=== PATIENT | male | born 1955 | race African-American/Black ===

== ENCOUNTER 2019-02-16 10:06 | Emergency (ER) | payer MEDICAID ==
[~2019-02-16] VITALS: Ht 170.2 cm; Wt 77.0 kg
[~2019-02-16 10:06] MED LIST: ALBUTEROL
[2019-02-16] MEDS ORDERED: ALBUTEROL (0.083%) 2.5MG/3ML NEB HHN STA (11:51)
[2019-02-16] MEDS ORDERED: IPRATROPIUM BROMIDE (0.02%) 0.5MG/2.5ML NEB HHN STA (11:51)
[2019-02-16] MEDS ORDERED: MAGNESIUM 2 G PREMIX 50 ML IV STA (11:51)
[2019-02-16] MEDS ORDERED: METHYLPREDNISOLONE SOD SUCC 125 MG/2 ML VIAL IV STA (11:51)
[2019-02-16 13:12] LABS: CHLORIDE 107 mEq/L (98-107)
[2019-02-16 13:21] LABS: BASOPHILS % 0.8 % (0.0-2.0); EOSINOPHILS % 0.4 % (0.0-5.0); HEMATOCRIT. 21.1 % (42.0-52.0); LYMPHOCYTES % 10.1 % (20.0-50.0); MEAN CORPUSCULAR HEMOGLOBIN 19.2 pg (28.0-32.0); MEAN CORPUSCULAR VOLUME 65.5 fL (80.0-94.0); MEAN PLATELET VOLUME 7.3 fl (7.4-10.4); MONOCYTES % 5.9 % (2.0-8.0); NEUTROPHILS % 82.8 % (40.0-76.0); PLATELET 429 x1000/uL (130-400); RED BLOOD CELL COUNT 3.22 mill/uL (4.7-6.1); RED CELL DISTRIBUTION WIDTH 15.7 % (11.6-14.6)
[2019-02-16 13:24] LABS: HEMOGLOBIN. 6.2 g/dL (14.0-18.0)
[2019-02-16 14:12] LABS: PLATELET ESTIMATE NORMAL
[2019-02-16 14:25] VITALS: BP 152/65
== END 2019-02-16 15:01 | disposition left against medical advice (07) ==
LOC: ER 10:17
DX: D64.9 Anemia, unspecified (principal); J45.909 Unspecified asthma, uncomplicated
CPT/HCPCS: 36415; 71045; 80053; 83880; 84484; 85025; 93005; 94644; 96365; 96375; 99285; J2930; J3475; J7611; Z7610

== ENCOUNTER 2019-02-18 10:03 | Inpatient (IN) | payer MEDICAID ==
[~2019-02-18] VITALS: Ht 172.7 cm; Wt 72.1 kg
[2019-02-18 11:29] LABS: MEAN CORPUSCULAR HEMOGLOBIN 19.6 pg (28.0-32.0); MEAN CORPUSCULAR VOLUME 66.4 fL (80.0-94.0); MEAN PLATELET VOLUME 7.3 fl (7.4-10.4); PLATELET 477 x1000/uL (130-400); RED BLOOD CELL COUNT 3.28 mill/uL (4.7-6.1)
[2019-02-18 11:35] LABS: CHLORIDE 102 mEq/L (98-107); PROTHROMBIN TIME 10.3 sec (9.6-11.0)
[2019-02-18 11:40] LABS: HEMATOCRIT. 21.8 % (42.0-52.0); HEMOGLOBIN. 6.4 g/dL (14.0-18.0)
[2019-02-18 12:58] LABS: PLATELET ESTIMATE INCREASED
[2019-02-18] MEDS ORDERED: IPRATROPIUM/ALBUTEROL 0.5-3(2.5)MG/3ML NEB HHN PRN ×2 (13:00→13:30)
[2019-02-18] MEDS ORDERED: CEFTRIAXONE 1 G PREMIX 50 ML IV SCH (13:00)
[2019-02-18] MEDS: SODIUM CHLORIDE 0.9% 1,000 ML IV SCH (13:00)
[2019-02-18 14:29] LABS: CLARITY URINE CLEAR (CLEAR); COLOR URINE YELLOW (YELLOW); KETONES URINE NEGATIVE (NEGATIVE); LEUKOCYTE ESTERASE URINE NEGATIVE (NEGATIVE); NITRITE URINE NEGATIVE (NEGATIVE); OCCULT BLOOD URINE NEGATIVE (NEGATIVE); PH URINE 5.5 (4.5-8.0); PROTEIN URINE NEGATIVE (NEGATIVE); SPECIFIC GRAVITY URINE 1.018 (1.005-1.030)
[2019-02-18 17:27] VITALS: BP 136/86
[2019-02-18 20:00] VITALS: BP 135/75
[2019-02-18] MEDS ORDERED: VANCOMYCIN 2,000 MG in DEXT 5% WATER 500 ML IV NR (20:00)
[2019-02-18 21:00] VITALS: BP 135/75
[2019-02-18] MEDS ORDERED: GUAIFENESIN 600MG ER TABLET PO SCH (21:00)
[2019-02-18 21:06] LABS: HEMOGLOBIN 6.6 g/dL (14.0-18.0)
[2019-02-18 21:07] LABS: HEMATOCRIT 21.5 % (42.0-52.0)
[2019-02-18] MEDS: IPRATROPIUM/ALBUTEROL 0.5-3(2.5)MG/3ML NEB HHN SCH (21:09)
[2019-02-18 21:17] LABS: PROTHROMBIN TIME 10.4 sec (9.6-11.0)
[2019-02-18] MEDS: CEFTRIAXONE 1 G PREMIX 50 ML IV SCH (21:56)
[2019-02-18 23:30] VITALS: BP 126/70
[2019-02-18 23:47] VITALS: BP 136/69
[2019-02-19] VITALS (12 sets, daily range): BP systolic 123–159; BP diastolic 61–87
[2019-02-19] MEDS: GUAIFENESIN 600MG ER TABLET PO SCH ×2 (00:10→09:14)
[2019-02-19] MEDS: IPRATROPIUM/ALBUTEROL 0.5-3(2.5)MG/3ML NEB HHN SCH ×5 (00:18→16:42)
[2019-02-19] MEDS: SODIUM CHLORIDE 0.9% 1,000 ML IV SCH (03:19)
[2019-02-19] MEDS ORDERED: VANCOMYCIN 1250MG in DEXTROSE 5% WATER 250ML IV SCH (08:00)
[2019-02-19 10:27] LABS: HEMATOCRIT. 27.8 % (42.0-52.0); HEMOGLOBIN. 8.7 g/dL (14.0-18.0); MEAN CORPUSCULAR HEMOGLOBIN 22.3 pg (28.0-32.0); MEAN CORPUSCULAR VOLUME 70.9 fL (80.0-94.0); MEAN PLATELET VOLUME 7.2 fl (7.4-10.4); PLATELET 408 x1000/uL (130-400); RED BLOOD CELL COUNT 3.93 mill/uL (4.7-6.1); RED CELL DISTRIBUTION WIDTH 20.9 % (11.6-14.6)
[2019-02-19 10:31] LABS: CHLORIDE 103 mEq/L (98-107)
[2019-02-19 13:15] LABS: TOTAL IRON BINDING CAPACITY 306 ug/dL (250-450)
[2019-02-19 16:11] LABS: PLATELET ESTIMATE INCREASED
[2019-02-19 17:27] LABS: *AMPHETAMINES SCREEN URINE NEGATIVE (NEGATIVE); *BARBITURATES SCREEN URINE NEGATIVE (NEGATIVE); *BENZODIAZEPINES SCREEN URINE NEGATIVE (NEGATIVE); *COCAINE SCREEN URINE NEGATIVE (NEGATIVE)
[2019-02-19 17:28] LABS: CANNABINOID URINE SCREEN NEGATIVE (NEGATIVE); METHADONE URINE SCREEN NEGATIVE (NEGATIVE); OPIATES URINE SCREEN PRESUMTIVE POSITIVE (NEGATIVE); PHENCYCLIDINE URINE SCREEN NEGATIVE (NEGATIVE)
[2019-02-19] MEDS: CEFTRIAXONE 1 G PREMIX 50 ML IV SCH (18:30)
== END 2019-02-19 18:30 | disposition home or self-care (01) | DRG 720 ==
LOC: ER 10:03 → 5WST 12:40 → ENRESERV 15:44
PROVIDERS: ADMIT Internal Medicine; ATTEND Internal Medicine
PROC: 30233N1 Transfusion of Nonautologous Red Blood Cells into Peripheral Vein, Percutaneous Approach (ICD-10-PCS; principal; 2019-02-18)
DX: A41.9 Sepsis, unspecified organism (principal); E44.1 Mild protein-calorie malnutrition; E87.1 Hypo-osmolality and hyponatremia; F17.210 Nicotine dependence, cigarettes, uncomplicated; L03.115 Cellulitis of right lower limb; D50.9 Iron deficiency anemia, unspecified; J45.909 Unspecified asthma, uncomplicated; Z71.6 Tobacco abuse counseling; Z68.24 Body mass index [BMI] 24.0-24.9, adult
CPT/HCPCS: 36415; 71045; 80048; 80305; 81003; 82728; 83036; 83540; 83550; 84145; 85014; 85018; 85049; 85384; 86850; 86900; 86920; 93970; 94640; 99285; J0696; J3370; J7060; J7620; P9016; P9021

== ENCOUNTER 2019-09-03 12:56 | Inpatient (IN) | payer MEDICAID ==
[~2019-09-03] VITALS: Ht 170.2 cm; Wt 67.6 kg
[2019-09-03 15:05] LABS: CHLORIDE 106 mEq/L (98-107)
[2019-09-03 15:08] LABS: INR 0.9; PROTHROMBIN TIME 10.1 sec (9.6-11.0)
[2019-09-03 15:09] LABS: MEAN CORPUSCULAR HEMOGLOBIN 17.3 pg (28.0-32.0); MEAN CORPUSCULAR VOLUME 62.1 fL (80.0-94.0); MEAN PLATELET VOLUME 7.2 fl (7.4-10.4); PLATELET 530 x1000/uL (130-400); RED BLOOD CELL COUNT 2.92 mill/uL (4.7-6.1); RED CELL DISTRIBUTION WIDTH 17.3 % (11.6-14.6)
[2019-09-03 15:21] LABS: HEMATOCRIT. 18.2 % (42.0-52.0); HEMOGLOBIN. 5.1 g/dL (14.0-18.0)
[2019-09-03 16:22] LABS: PLATELET ESTIMATE INCREASED
[2019-09-03] MEDS ORDERED: IPRATROPIUM/ALBUTEROL 0.5-3(2.5)MG/3ML NEB HHN PRN (17:30)
[2019-09-03] MEDS ORDERED: BENZONATATE 100MG CAPSULE PO PRN (17:30)
[2019-09-03] MEDS ORDERED: ACETAMINOPHEN 325MG TABLET PO PRN (17:30)
[2019-09-03] MEDS ORDERED: ONDANSETRON HCL 4MG/2ML INJ IV PRN (17:30)
[2019-09-03 17:44] VITALS: BP 128/70
[2019-09-03 17:45] VITALS: BP 128/70
[2019-09-03] MEDS: AZITHROMYCIN 500 MG TABLET PO SCH (19:31)
[2019-09-03] MEDS: SODIUM CHLORIDE 0.9% 1,000 ML IV SCH ×2 (19:34→23:17)
[2019-09-03 20:24] VITALS: BP 121/70
[2019-09-03 20:42] VITALS: BP 122/78
[2019-09-03 21:42] VITALS: BP 110/56
[2019-09-03 21:44] LABS: CLARITY URINE CLEAR (CLEAR); COLOR URINE YELLOW (YELLOW); KETONES URINE NEGATIVE (NEGATIVE); LEUKOCYTE ESTERASE URINE NEGATIVE (NEGATIVE); NITRITE URINE NEGATIVE (NEGATIVE); OCCULT BLOOD URINE NEGATIVE (NEGATIVE); PROTEIN URINE NEGATIVE (NEGATIVE); SPECIFIC GRAVITY URINE 1.014 (1.005-1.030); UROBILINOGEN URINE 0.2 E.U./dL (0.2-1.0)
[2019-09-03 21:53] LABS: *AMPHETAMINES SCREEN URINE PRESUMTIVE POSITIVE (NEGATIVE); *BARBITURATES SCREEN URINE NEGATIVE (NEGATIVE); *BENZODIAZEPINES SCREEN URINE NEGATIVE (NEGATIVE); *COCAINE SCREEN URINE NEGATIVE (NEGATIVE)
[2019-09-03 21:54] LABS: CANNABINOID URINE SCREEN PRESUMTIVE POSITIVE (NEGATIVE); METHADONE URINE SCREEN NEGATIVE (NEGATIVE); OPIATES URINE SCREEN PRESUMTIVE POSITIVE (NEGATIVE); PHENCYCLIDINE URINE SCREEN NEGATIVE (NEGATIVE)
[2019-09-03 22:42] VITALS: BP 115/59
[2019-09-03] MEDS: CEFTRIAXONE 1 G PREMIX 50 ML IV SCH (23:17)
[2019-09-04] VITALS (14 sets, daily range): BP systolic 118–146; BP diastolic 62–80
[2019-09-04 06:32] LABS: CHLORIDE 102 mEq/L (98-107)
[2019-09-04 07:07] LABS: HEMATOCRIT. 21.8 % (42.0-52.0); MEAN CORPUSCULAR VOLUME 65.5 fL (80.0-94.0); MEAN PLATELET VOLUME 7.4 fl (7.4-10.4); PLATELET 468 x1000/uL (130-400); RED BLOOD CELL COUNT 3.34 mill/uL (4.7-6.1); RED CELL DISTRIBUTION WIDTH 20.9 % (11.6-14.6)
[2019-09-04 07:23] LABS: HEMOGLOBIN. 6.7 g/dL (14.0-18.0)
[2019-09-04] MEDS: AZITHROMYCIN 500 MG TABLET PO SCH (08:46)
[2019-09-04 09:34] LABS: HEMATOCRIT 22.2 % (42.0-52.0); MEAN CORPUSCULAR HEMOGLOBIN 19.9 pg (28.0-32.0); MEAN CORPUSCULAR VOLUME 65.6 fL (80.0-94.0); PLATELET 455 x1000/uL (130-400); RED BLOOD CELL COUNT 3.39 mill/uL (4.7-6.1); RED CELL DISTRIBUTION WIDTH 20.9 % (11.6-14.6)
[2019-09-04 09:43] LABS: HEMOGLOBIN 6.7 g/dL (14.0-18.0)
[2019-09-04 20:08] LABS: PLATELET ESTIMATE INCREASED
[2019-09-04] MEDS: CEFTRIAXONE 1 G PREMIX 50 ML IV SCH (21:51)
[2019-09-05] VITALS (8 sets, daily range): BP systolic 108–141; BP diastolic 64–80
[2019-09-05] MEDS: IPRATROPIUM/ALBUTEROL 0.5-3(2.5)MG/3ML NEB HHN SCH ×4 (00:41→20:35)
[2019-09-05 02:17] LABS: BASOPHILS % 3.4 % (0.0-2.0); EOSINOPHILS % 2.2 % (0.0-5.0); HEMATOCRIT. 28.6 % (42.0-52.0); HEMOGLOBIN. 9.1 g/dL (14.0-18.0); LYMPHOCYTES % 14.1 % (20.0-50.0); MEAN CORPUSCULAR HEMOGLOBIN 21.6 pg (28.0-32.0); MEAN CORPUSCULAR VOLUME 68.4 fL (80.0-94.0); MEAN PLATELET VOLUME 7.1 fl (7.4-10.4); MONOCYTES % 6.8 % (2.0-8.0); NEUTROPHILS % 73.5 % (40.0-76.0); PLATELET 473 x1000/uL (130-400); RED BLOOD CELL COUNT 4.19 mill/uL (4.7-6.1); RED CELL DISTRIBUTION WIDTH 23.5 % (11.6-14.6)
[2019-09-05] MEDS: SODIUM CHLORIDE 0.9% 1,000 ML IV SCH ×2 (05:31→10:17)
[2019-09-05 07:34] LABS: HEMATOCRIT. 27.6 % (42.0-52.0); HEMOGLOBIN. 8.8 g/dL (14.0-18.0); MEAN CORPUSCULAR HEMOGLOBIN 21.8 pg (28.0-32.0); MEAN PLATELET VOLUME 7.6 fl (7.4-10.4); PLATELET 470 x1000/uL (130-400); RED BLOOD CELL COUNT 4.05 mill/uL (4.7-6.1); RED CELL DISTRIBUTION WIDTH 23.3 % (11.6-14.6)
[2019-09-05 07:51] LABS: TOTAL IRON BINDING CAPACITY 354 ug/dL (250-450)
[2019-09-05] MEDS: AZITHROMYCIN 500 MG TABLET PO SCH (10:17)
[2019-09-05] MEDS: FERROUS SULFATE 325MG TABLET PO SCH ×2 (15:26→18:25)
[2019-09-05] MEDS: PANTOPRAZOLE SODIUM 40 MG/VIAL IV SCH ×2 (15:26→20:59)
[2019-09-05 20:57] LABS: PLATELET ESTIMATE INCREASED
[2019-09-05] MEDS: CEFTRIAXONE 1 G PREMIX 50 ML IV SCH (20:59)
[2019-09-06] VITALS: BP 110/68
[2019-09-06] MEDS: SODIUM CHLORIDE 0.9% 1,000 ML IV SCH ×2 (02:33→12:53)
[2019-09-06 04:00] VITALS: BP 117/69
[2019-09-06] MEDS: IPRATROPIUM/ALBUTEROL 0.5-3(2.5)MG/3ML NEB HHN SCH ×4 (05:10→21:52)
[2019-09-06 07:21] LABS: BASOPHILS % 0.8 % (0.0-2.0); EOSINOPHILS % 2.5 % (0.0-5.0); HEMATOCRIT. 26.9 % (42.0-52.0); HEMOGLOBIN. 8.4 g/dL (14.0-18.0); LYMPHOCYTES % 12.3 % (20.0-50.0); MEAN CORPUSCULAR HEMOGLOBIN 21.5 pg (28.0-32.0); MEAN CORPUSCULAR VOLUME 69.5 fL (80.0-94.0); MEAN PLATELET VOLUME 7.6 fl (7.4-10.4); MONOCYTES % 5.8 % (2.0-8.0); NEUTROPHILS % 78.6 % (40.0-76.0); PLATELET 466 x1000/uL (130-400); RED BLOOD CELL COUNT 3.88 mill/uL (4.7-6.1); RED CELL DISTRIBUTION WIDTH 23.3 % (11.6-14.6)
[2019-09-06 07:28] LABS: CHLORIDE 109 mEq/L (98-107)
[2019-09-06] MEDS: FERROUS SULFATE 325MG TABLET PO SCH ×2 (07:50→12:50)
[2019-09-06 08:00] VITALS: BP 111/67
[2019-09-06 08:58] LABS: INR 0.9; PARTIAL THROMBOPLASTIN TIME 25.2 sec (23.4-31.0); PROTHROMBIN TIME 10.2 sec (9.6-11.0)
[2019-09-06] MEDS: AZITHROMYCIN 500 MG TABLET PO SCH (09:00)
[2019-09-06] MEDS: PANTOPRAZOLE SODIUM 40 MG/VIAL IV SCH ×2 (09:33→22:09)
[2019-09-06 12:00] VITALS: BP 122/68
[2019-09-06] MEDS ORDERED: FERR325T6 MT (12:31)
[2019-09-06] MEDS ORDERED: DOCU250C14 MT (12:31)
[2019-09-06] MEDS ORDERED: OMEP20CA14 MT (12:31)
[2019-09-06] MEDS ORDERED: MIDAZOLAM HCL 5 MG/5 ML VIAL ONE (14:02)
[2019-09-06] MEDS ORDERED: FENTANYL CITRATE/PF 50MCG/ML 2ML VIAL ONE ×2 (14:02→14:37)
[2019-09-06] MEDS ORDERED: DIPHENHYDRAMINE 50MG/ML VIAL ONE (14:02)
[2019-09-06] MEDS ORDERED: DIAZEPAM 5 MG/ML 2ML CPJ ONE ×2 (14:03→14:42)
[2019-09-06] MEDS ORDERED: FENTANYL CITRATE/PF 50MCG/ML 2ML VIAL IV PRN (14:24)
[2019-09-06] MEDS ORDERED: MIDAZOLAM HCL 2 MG/2 ML VIAL IV PRN (14:25)
[2019-09-06] MEDS ORDERED: DIAZEPAM 5 MG/ML 2ML CPJ IV PRN ×2 (14:27→14:40)
[2019-09-06] MEDS ORDERED: DIPHENHYDRAMINE 50MG/ML VIAL IV PRN (14:41)
[2019-09-06 16:00] VITALS: BP 131/75
[2019-09-06] MEDS ORDERED: OMEP40CA12 MT (16:31)
[2019-09-06] MEDS ORDERED: SUCR1TAB MT (16:31)
[2019-09-06] MEDS: SUCRALFATE 1 G/10 ML UDC PO SCH ×2 (17:53→22:09)
[2019-09-06] MEDS: METOCLOPRAMIDE HCL 10MG/2ML VIAL IV SCH ×2 (17:53→22:09)
[2019-09-06] MEDS ORDERED: IRON SUCROSE COMPLEX 100 MG/5 ML ML IV SCH (18:00)
[2019-09-06 20:00] VITALS: BP 121/59
[2019-09-06] MEDS: CEFTRIAXONE 1 G PREMIX 50 ML IV SCH (20:19)
[2019-09-07] VITALS: BP 138/77
[2019-09-07] MEDS: SODIUM CHLORIDE 0.9% 1,000 ML IV SCH (01:30)
[2019-09-07] MEDS: IPRATROPIUM/ALBUTEROL 0.5-3(2.5)MG/3ML NEB HHN SCH ×3 (02:31→12:40)
[2019-09-07 04:00] VITALS: BP 127/70
[2019-09-07 08:00] VITALS: BP 88/54
[2019-09-07] MEDS: SUCRALFATE 1 G/10 ML UDC PO SCH ×2 (09:27→14:06)
[2019-09-07] MEDS: METOCLOPRAMIDE HCL 10MG/2ML VIAL IV SCH ×3 (09:27→14:06)
[2019-09-07] MEDS: PANTOPRAZOLE SODIUM 40 MG/VIAL IV SCH (09:27)
[2019-09-07] MEDS ORDERED: MIDODRINE HCL 5MG TABLET PO NR (16:15)
[2019-09-07] MEDS ORDERED: SODIUM CHLORIDE 0.9% 500 ML IV NR (16:15)
[2019-09-07 19:40] VITALS: BP 96/56
[2019-09-07] MEDS ORDERED: FLUT1DIS3 INH (20:16)
[2019-09-07] MEDS ORDERED: ALBU05 IH (20:18)
== END 2019-09-07 21:00 | disposition home or self-care (01) | DRG 812 ==
LOC: ER 12:56 → ENRESERV 16:32 → 6WST 17:05
PROVIDERS: ADMIT Internal Medicine; ATTEND Internal Medicine
PROC: 30233N1 Transfusion of Nonautologous Red Blood Cells into Peripheral Vein, Percutaneous Approach (ICD-10-PCS; 2019-09-05)
PROC: 0DB78ZX Excision of Stomach, Pylorus, Via Natural or Artificial Opening Endoscopic, Diagnostic (ICD-10-PCS; principal; 2019-09-06)
DX: T40.7X1A Poisoning by cannabis (derivatives), accidental (unintentional), initial encounter (principal); J96.00 Acute respiratory failure, unspecified whether with hypoxia or hypercapnia; A41.9 Sepsis, unspecified organism; E44.0 Moderate protein-calorie malnutrition; E87.1 Hypo-osmolality and hyponatremia; E88.09 Other disorders of plasma-protein metabolism, not elsewhere classified; D50.9 Iron deficiency anemia, unspecified; F11.10 Opioid abuse, uncomplicated; J68.0 Bronchitis and pneumonitis due to chemicals, gases, fumes and vapors; F17.210 Nicotine dependence, cigarettes, uncomplicated; K59.00 Constipation, unspecified; K44.9 Diaphragmatic hernia without obstruction or gangrene; K20.9 Esophagitis, unspecified; F15.10 Other stimulant abuse, uncomplicated; F12.10 Cannabis abuse, uncomplicated; J44.9 Chronic obstructive pulmonary disease, unspecified; K52.9 Noninfective gastroenteritis and colitis, unspecified; K29.70 Gastritis, unspecified, without bleeding; Z68.23 Body mass index [BMI] 23.0-23.9, adult; Z71.6 Tobacco abuse counseling; T43.621A Poisoning by amphetamines, accidental (unintentional), initial encounter; Z71.51 Drug abuse counseling and surveillance of drug abuser; Y92.89 Other specified places as the place of occurrence of the external cause; Z87.19 Personal history of other diseases of the digestive system
CPT/HCPCS: 36415; 71045; 71260; 74177; 80048; 80053; 80305; 81003; 82270; 82378; 82607; 82728; 82746; 83540; 83550; 83605; 84484; 85025; 85027; 86850; 86900; 86920; 88305; 88312; 88313; 93005; 94640; 99285; C9113; J0696; J1200; J2250; J2765; J3010; J7030; P9016; P9021